=== PATIENT | female | born 1935 | race Caucasian/White ===

== ENCOUNTER 2016-09-29 17:42 | Inpatient (IN) ==
[2016-09-29] MEDS ORDERED: *HR* Morphine 2 MG/ML SYRINGE IVP PRN (20:08)
[2016-09-29] MEDS ORDERED: Acetaminophen 325 MG TABLET PO PRN (20:08)
[2016-09-29] MEDS ORDERED: Nitroglycerin 0.4 MG TAB.SUBL SL PRN (20:08)
[2016-09-29] MEDS ORDERED: *HR* Promethazine 25 MG/ML VIAL IVP PRN (20:08)
[2016-09-29] MEDS ORDERED: Naloxone 0.4 MG/ML INJ IVP PRN (20:08)
[2016-09-29] MEDS ORDERED: Pantoprazole 40 MG VIAL IVP STA (20:08)
[2016-09-29] MEDS ORDERED: *HR* Heparin 5,000 UNIT/ML VIAL IVP PRN ×2 (20:08)
[2016-09-29] MEDS ORDERED: *HR* Heparin 5,000 UNIT/ML VIAL IVP ONE (20:08)
[2016-09-29] MEDS ORDERED: 0.9 % Sodium Chloride 1,000 ML IVC SCH (20:15)
--- NOTE | 2016-09-29 20:36 | Internal Med History&Physical ---
Date of Encounter: 09/29/16 Time of Encounter: 20:00 Assessment and Plan (1) Dizziness, nonspecific Current visit: Yes Status: Acute . (2) Generalized headache Current visit: Yes Status: Acute . (3) Elevated troponin I measurement Current visit: Yes Status: Acute . (4) Non-ST elevation myocardial infarction (NSTEMI) due to mismatch of myocardial oxygen supply and demand Current visit: Yes Status: Acute . (5) Postural vertigo Current visit: Yes Status: Acute . Qualifiers: Laterality: unspecified laterality Qualified Code(s): H81.10 - Benign paroxysmal vertigo, unspecified ear (6) COPD (chronic obstructive pulmonary disease) Current visit: Yes Status: Chronic . Qualifiers: COPD type: chronic bronchitis Chronic bronchitis type: simple Qualified Code(s): J41.0 - Simple chronic bronchitis (7) HTN (hypertension) Current visit: Yes Status: Chronic . Qualifiers: Hypertension type: essential hypertension Qualified Code(s): I10 - Essential (primary) hypertension (8) HLD (hyperlipidemia) Current visit: Yes Status: Chronic . Qualifiers: Hyperlipidemia type: other hyperlipidemia Qualified Code(s): E78.4 - Other hyperlipidemia (9) Obesity (BMI 30-39.9) Current visit: Yes Status: Chronic . (10) Hypothyroidism Current visit: Yes Status: Chronic . Qualifiers: Hypothyroidism type: acquired Qualified Code(s): E03.9 - Hypothyroidism, unspecified (11) Incomplete RBBB Current visit: Yes Status: Chronic . (12) Acute chest wall pain Current visit: Yes Status: Acute . (13) Chest pain, rule out acute myocardial infarction Current visit: Yes Status: Acute . (14) Chest pain with moderate risk of acute coronary syndrome Current visit: Yes Status: Acute . (15) Chronic respiratory failure with hypoxia Current visit: Yes Status: Chronic . (16) CAD (coronary artery disease), [place] coronary artery Current visit: Yes Status: Chronic . Qualifiers: [place] vs. transplanted heart: [place] heart Associated angina: angina presence unspecified Qualified Code(s): I25.10 - Atherosclerotic heart disease of [place] coronary artery without angina pectoris (17) Illiteracy and low-level literacy Current visit: Yes Status: Chronic . (18) Protein-calorie malnutrition, severe Current visit: Yes Status: Chronic . Internal Medicine - H&P: HPI Chief complaint: Chest pain. Dizziness. Admitted From: Hospital to Hospital Transfer (Hospital transfer [facility] ED) Plans for Post Hospital Care: Home History of present illness: Ms. Reed is a 81 year old female admitted to [facility] as a transfer from [facility] ED with the patient presented with complaints of dizziness/the dizziness as being intermittent progressing over at least 2 weeks. Denied any nausea vomiting or diaphoresis associated with these episodes nor did she experience chest pain. Studies in the emergency setting were benign as related to a vital signs, CBC with differential coagulation profile metabolic panel. Urinalysis showed urinary sediment suggesting possible hepatic inflammation and proteinuria. Bone and returned elevated at 0.67 with a BNP of 122. Chronic function profile was benign heat And Measurement 2 Hours Later Was 0.93. EKG Demonstrated No Acute Ischemic Changes. Incomplete Right Bundle Branch Block with a Septal Changes of Age Indeterminate Injury to It. CT of the Head and Portable Chest X-Ray Demonstrated No Acute Abnormalities. The Patient Was Characterized As Presenting with an Atypical Non-STEMI and Transferred for Further Evaluation and Disposition. Interestingly a echocardiogram obtained in August 2015 demonstrated an LVEF of 70%. Moderate diastolic dysfunction was noted. Moderately enlarged right atrial size. Severe pulmonary hypertension with RVSP at 84 mmHg was noted. She carries a diagnosis of prior episode of diastolic CHF exacerbation as well as a prior episode of non-ST elevation OR secondary to demand ischemia type II. Patient's record further acknowledges a family history of coronary artery disease, as well as her own factor presentation with sex, age, hypertension and dyslipidemia. The patient will undergo comprehensive evaluation and disposition. The patient was visited and interviewed and examined. Cumulative laboratory and radiographic data base was considered and discussed. Pertinent ancillary medical records including ECW and PCI documentation was reviewed and considered. Given the patient's presenting concerns, past medical history, clinical findings and symptoms, she is admitted at this time will undergo further evaluation and disposition. Orders were written as per the computerized physician supervisor border department system.......................................................................... .................... Consultative opinions will be sought as clinical circumstances justify. Initial consultative opinion has been requested with cardiology. It is anticipated the patient may undergo left heart catheterization for definition of coronary anatomy and potential intervention pending clinical workup completion. Pain management needs will be addressed. Laboratory+ radiographic data base will be updated as appropriate. Studies include: random urine assays, ddimer,pt/inr, aptt, hypercoag panel, CPK, cardiac injury panel, BNP, viral hep panel, metabolic and hematologic panel, magnesium, phosphorus, ionized calcium, thyroid , lipid profile, A1c, C-peptide , CRP, sedimentation rate, blood gas, lactic acid, UA, serologies, etc. Precautions: Aspiration, fall, delirium protocol/surveillance initiated. Telemetry with continuous hemodynamic monitoring and pulse oximetry initiated. Orthostatic vital signs. Empiric antibiotic coverage: pending diagnostics/culture data. Special studies: CT/CTA chest, MRI brain, echocardiogram, chest x-ray, telemetry , EKG, US retroperitoneum. Pulmonary toilet: Incentive spirometry. PRNaerosol bronchodilator, mucolytic, antitussive. Supplemental oxygen. Corticosteroid therapyPRN. CPAP/BiPAP supplemental oxygen delivery employedPRN. Aerosol Mucomyst therapy may be employedPRN. Fluid and electrolyte repletion efforts will proceed. Careful attention to fluid balance and renal recovery will be emphasized. Avoidance of nephrotoxic exposure and adverse drug drug interaction in the setting of impaired renal function will be monitored closely. Acute coronary syndrome protocol/surveillance initiated. Including: Aspirin statin [place] inhibitor beta cricket. Plavix. Nitrates. PRNmorphine. Intravenous heparin drip ACS protocol. DVT and PUD prophylaxis initiated: PPI therapy, intermittent pneumatic cuffs. Early ambulation will be encouraged. Immunization updates recommended. Influenza and pneumococcal vaccinations as part of ongoing preventative healthcare recommendations strongly recommended. Smoking cessation counseling briefly addressed. Patient is a nonsmoker. Advanced care directive discussion briefly addressed. Patient does not declare any healthcare restrictions at this time. Cardiovascular risk appraisal and cardiovascular risk reduction efforts will be emphasized. Physical +occupational therapy may be asked to evaluate patient's functional capacity and progress mobility if her circumstances justify. Nutrition/dietary education counseling may be considered as circumstances justify. Outpatient medication schedules will be reviewed, confirmed and facilitated as appropriate. Reconciliation of home treatments including adjustments, substitutions and reintroduction into the treatment regimen will address necessary maintenance therapies for chronic pre-existing medical conditions. Plan of care has been reviewed and discussed in detail with the patient. Questions addressed. Hospital course dictated by clinical findings, treatment response and potential consultative interventions. Patient is at risk for further acute clinical decline due to her age, chief complaints and comorbid conditions. Condition is serious. Prognosis is guarded. CODE STATUS is full. Past Med Surg Social Fam HX - Past Medical History Source: old records reviewed Medical history: arthritis, CHF, COPD, coronary artery disease, GERD, hyperlipidemia, hypertension, myocardial infarction, osteoporosis (Vitamin D deficiency), thyroid disease, other Psychiatric history: anxiety, other - Past Surgical History Surgical History: cholecystectomy, other - Social History Smoking Status: Never smoker Smokeless Tobacco Status: No Alcohol use: none Drug use: none Occupational status: retired Current living situation: Home - Independent Activity Level: Independent ambulation, Mostly sedentary Recent Out of Country Travel Within the Last 8 Weeks: No Exposure or Possible Exposure to Illness During Travel: No Internal Medicine - H&P: Meds Bumetanide [Bumex] 1 mg PO DAILY 08/21/15 [History] Cholecalciferol (Vitamin D3) [Vitamin D3] 10,000 unit PO QWEEK 08/21/15 [History ] Clopidogrel [Plavix] 75 mg PO DAILY 08/21/15 [History] Docusate Sodium [Stool Softener] 100 mg PO DAILY 08/21/15 [History] Isosorbide MONOnitrate (24 HR) [Imdur] 30 mg PO DAILY 08/21/15 [History] Levothyroxine Sodium [Tirosint] 25 mcg PO DAILY 08/21/15 [History] Lovastatin [Mevacor] 20 mg PO HS 08/21/15 [History] Potassium Chloride [Klor-Con Sprinkle] 10 meq PO BID 08/21/15 [History] Esomeprazole Magnesium [Nexium] 20 mg PO DAILY 09/29/16 [History] HYDROcodone/Acet 10/325 mg [[place] 10-325 mg] 10 tab PO TID 09/29/16 [History] LORazepam [Ativan] 1 mg PO TID PRN 09/29/16 [History] Donepezil HCl [Aricept] 10 mg PO DAILY 09/30/16 [History] Loratadine [Allergy Relief] 10 mg PO DAILY 09/30/16 [History] Nitroglycerin [Nitrostat] 0.4 mg SL AD PRN 09/30/16 [History] Pnv62/FA/Om3/Dha/Epa/Fish Oil [[employer] Gummy Vitamins] 1 tab PO DAILY 09/30 [History] Triamcinolone Acet 0.1% CRM [Kenalog] 1 appl TP BID 09/30/16 [History] Zinc Oxide [Skin Protectant] 1 appl TP 8XD 09/30/16 [History] Aspirin 81 mg PO DAILY #30 tab.chew 10/02/16 [Rx] Allergies cephalexin [From Keflex] Allergy (Verified 09/10/15 00:55) Rash Penicillins [PCN] Allergy (Verified 09/10/15 00:55) Rash All Systems PM: A 10-system review of systems was performed and is negative for pertinent findings except as documented above in the HPI. - Constitutional Constitutional: as per HPI, no chills, no fever(s), no night sweats - EENT Eyes: as per HPI, no change in vision, no discharge, no pain, no photophobia Ears: as per HPI, no ear discharge, no ear pain, no tinnitus Nose, mouth and throat: as per HPI, no dysphagia, no nasal discharge, no neck pain, no sore throat - Cardiovascular Cardiovascular ROS IM: as per HPI, chest pain, lightheadedness, other, no diaphoresis, no dyspnea, no palpitations, no syncope - Respiratory Respiratory: as per HPI, no cough, no dyspnea, no wheezing, no excessive phlegm production - Gastrointestinal Gastrointestinal: as per HPI, no abdominal pain, no diarrhea, no hematemesis, no hematochezia, no melena, no nausea, no vomiting - Genitourinary Genitourinary: as per HPI, no change in urinary stream, no dysuria, no flank pain, no hematuria Menstruation: as per HPI, post menopausal - Musculoskeletal Musculoskeletal ROS IM: as per HPI, no numbness, no tingling - Integumentary Integumentary IM: as per HPI, no rash, no unusual bruising - Neurological Neurological ROS: as per HPI, no confusion, no convulsions, no focal weakness, no numbness, no tingling, no tremor(s) - Psychiatric Psychiatric: as per HPI - Endocrine Endocrine IM: as per HPI - Hematologic/Lymphatic Hematologic/Lymphatic: as per HPI, no easy bruising - Constitutional Vitals: Temp Pulse Resp BP Pulse Ox 98.2 F 68 18 132/60 98 09/29/16 18:54 09/29/16 18:54 09/29/16 18:54 09/29/16 18:54 09/29/16 18:54 Vital Signs Temp Pulse Resp BP Pulse Ox 09/30/16 04:00 97.9 F 61 18 141/62 99 09/30/16 00:00 98.2 F 66 20 122/74 97 09/29/16 18:54 98.2 F 68 18 132/60 98 Intake and Output 09/29/16 09/29/16 09/30/16 15:59 23:59 07:59 Intake Total 0 / 0 0 / 0 Output Total 175 / 175 Balance 0 / 0 -175 / -175 Intake: Oral 0 / 0 0 / 0 Output: Catheter 175 / 175 Other: # Voids 0 Weight 68.4 kg General appearance: Present: mild distress, A&O X 3, obese, answers questions appropriately - Head Head exam: Present: atraumatic, normocephalic - Eye Eye exam: Present: EOMI, PERRL, conjuntiva pink, sclera anicteric Pupils: Present: normal accommodation, PERRL - ENT ENT exam: Present: mucous membranes moist, normal oropharynx - Neck Neck exam general surgery: Present: full ROM, supple, trachea midline. Absent: lymphadenopathy - Respiratory Respiratory exam: Present: decreased breath sounds, CTAB. Absent: accessory muscle use, rales, rhonchi, wheezes - Cardiovascular Cardiovascular exam: Present: distant heart sounds, RRR, +S1, +S2. Absent: diastolic murmur, gallop, rubs, systolic murmur - GI/Abdominal GI/Abdominal exam: Present: normal bowel sounds, soft, no peritoneal signs. Absent: distended, tenderness - Extremities Exam Extremities exam: Present: full ROM, warm, radial pulses palpable and symetrical. Absent: calf tenderness, cyanotic, pedal edema - Neurological Exam Neurological exam: Present: alert, CN II-XII intact, oriented X3, no focal deficits. Absent: pronater drift, facial droop, speech deficit - Psychiatric Psychiatric exam: Present: normal affect, normal mood - Skin Skin exam: Present: dry, intact, warm Internal Med - H&P Results - Labs CBC & Chem 7: 10/02/16 04:47 10/01/16 03:15 Labs: Short CBC 09/30/16 09/29/16 Range/Units 04:48 21:16 WBC 3.8 L 5.5 (4.3-11.1) K/mcL Hgb 10.6 L 11.1 L (11.5-15.4) g/dL Hct 32.7 L 33.8 L (35.3-44.9) % Plt Count 172 201 (140-400) K/mcL Neutrophils # 2.3 3.6 (1.6-8.9) K/mcL BMP 09/30/16 Range/Units 04:48 Sodium 136 (136-145) mEq/L Potassium 4.6 H D (3.5-4.5) mEq/L Chloride 106 (98-109) mEq/L Carbon Dioxide 22 (19-29) mEq/L BUN 11 (7-20) mg/dL Creatinine 0.81 (0.57-1.11) mg/dL Glucose 85 (70-99) mg/dL Calcium 8.2 L (8.6-10.8) mg/dL Cardiac Enzymes 09/30/16 09/29/16 Range/Units 04:48 21:16 Troponin I 0.55 H* 0.77 H* (0-0.03) ng/mL Liver Function 09/30/16 Range/Units 04:48 Total Bilirubin 0.9 (0.2-1.2) mg/dL AST 34 (5-34) Units/L ALT 10 (0-55) Units/L Alkaline Phosphatase 65 (38-126) Units/L Albumin 2.5 L D (3.5-5.0) g/dL Abnormal lab results WBC 3.8 K/mcL (4.3-11.1) L 09/30/16 04:48 RBC 3.50 M/mcL (3.82-4.97) L 09/30/16 04:48 Hgb 10.6 g/dL (11.5-15.4) L 09/30/16 04:48 Hct 32.7 % (35.3-44.9) L 09/30/16 04:48 MPV 9.1 fL (9.4-12.4) L 09/30/16 04:48 PT 13.4 Seconds (9.4-12.1) H 09/30/16 04:48 APTT 156.7 Seconds (26.0-36.0) H* D 09/30/16 04:48 Heparin Anti-Xa, Unfract 1.33 IU/mL (0.30-0.70) H* 09/30/16 04:48 Potassium 4.6 mEq/L (3.5-4.5) H D 09/30/16 04:48 Calcium 8.2 mg/dL (8.6-10.8) L 09/30/16 04:48 Phosphorus 2.2 mg/dL (2.3-4.7) L 09/29/16 21:16 Troponin I 0.55 ng/mL (0-0.03) H* 09/30/16 04:48 Serum Total Protein 5.3 g/dL (6.0-8.3) L 09/30/16 04:48 Albumin 2.5 g/dL (3.5-5.0) L D 09/30/16 04:48 Albumin/Globulin Ratio 0.9 (1.1-2.2) L 09/30/16 04:48 Laboratory Last Values WBC 3.8 K/mcL (4.3-11.1) L 09/30/16 04:48 RBC 3.50 M/mcL (3.82-4.97) L 09/30/16 04:48 Hgb 10.6 g/dL (11.5-15.4) L 09/30/16 04:48 Hct 32.7 % (35.3-44.9) L 09/30/16 04:48 MCV 93.4 fL (83.0-100.0) 09/30/16 04:48 MCH 30.3 pg (28.0-33.3) 09/30/16 04:48 MCHC 32.4 g/dL (31.6-35.5) 09/30/16 04:48 RDW 12.8 % (11.5-14.5) 09/30/16 04:48 Plt Count 172 K/mcL (140-400) 09/30/16 04:48 MPV 9.1 fL (9.4-12.4) L 09/30/16 04:48 Immature Gran % 0.5 % (0-4) 09/30/16 04:48 Seg Neutrophils % 61.1 % 09/30/16 04:48 Lymphocytes % 27.2 % 09/30/16 04:48 Monocytes % 8.6 % 09/30/16 04:48 Eosinophils % 2.1 % 09/30/16 04:48 Basophils % 0.5 % 09/30/16 04:48 Neutrophils # 2.3 K/mcL (1.6-8.9) 09/30/16 04:48 Lymphocytes # 1.0 K/mcL (0.6-4.6) 09/30/16 04:48 Monocytes # 0.3 K/mcL (0.0-1.3) 09/30/16 04:48 Eosinophils # 0.1 K/mcL (0.0-0.6) 09/30/16 04:48 Basophils # 0.0 K/mcL (0.0-0.2) 09/30/16 04:48 PT 13.4 Seconds (9.4-12.1) H 09/30/16 04:48 INR 1.2 09/30/16 04:48 APTT 156.7 Seconds (26.0-36.0) H* D 09/30/16 04:48 Heparin Anti-Xa, Unfract 1.33 IU/mL (0.30-0.70) H* 09/30/16 04:48 Sodium 136 mEq/L (136-145) 09/30/16 04:48 Potassium 4.6 mEq/L (3.5-4.5) H D 09/30/16 04:48 Chloride 106 mEq/L (98-109) 09/30/16 04:48 Carbon Dioxide 22 mEq/L (19-29) 09/30/16 04:48 BUN 11 mg/dL (7-20) 09/30/16 04:48 Creatinine 0.81 mg/dL (0.57-1.11) 09/30/16 04:48 Est GFR ( Amer) > 60 (> 60) 09/30/16 04:48 Est GFR (Non-Af Amer) > 60 (> 60) 09/30/16 04:48 BUN/Creatinine Ratio 14 (6-26) 09/30/16 04:48 Glucose 85 mg/dL (70-99) 09/30/16 04:48 Est Mean Plasma Glucose 108 mg/dl 09/30/16 04:48 Hemoglobin A1c 5.4 % (-5.6) 09/30/16 04:48 Calculated Osmolality 281 (280-300) 09/30/16 04:48 Calcium 8.2 mg/dL (8.6-10.8) L 09/30/16 04:48 Phosphorus 2.2 mg/dL (2.3-4.7) L 09/29/16 21:16 Magnesium 1.9 mg/dL (1.6-2.6) 09/29/16 21:16 Total Bilirubin 0.9 mg/dL (0.2-1.2) 09/30/16 04:48 AST 34 Units/L (5-34) 09/30/16 04:48 ALT 10 Units/L (0-55) 09/30/16 04:48 Alkaline Phosphatase 65 Units/L (38-126) 09/30/16 04:48 Troponin I 0.55 ng/mL (0-0.03) H* 09/30/16 04:48 Serum Total Protein 5.3 g/dL (6.0-8.3) L 09/30/16 04:48 Albumin 2.5 g/dL (3.5-5.0) L D 09/30/16 04:48 Globulin 2.8 g/dL (2.4-3.5) 09/30/16 04:48 Albumin/Globulin Ratio 0.9 (1.1-2.2) L 09/30/16 04:48 Triglycerides 58 mg/dL (< 150) 09/30/16 04:48 Cholesterol 106 mg/dL (< 200) 09/30/16 04:48 LDL Cholesterol, Calc 45 mg/dL (0-99) 09/30/16 04:48 VLDL Cholesterol, Calc 12 mg/dL (< 31) 09/30/16 04:48 HDL Cholesterol 49 mg/dL (40-59) 09/30/16 04:48 Cholesterol/HDL Ratio 2.2 (0-4.9) 09/30/16 04:48 TSH 0.744 mcIU/mL (0.350-4.840) 09/30/16 04:48 Blood Type A POSITIVE 09/30/16 04:48 Antibody Screen NEGATIVE 09/30/16 04:48 - Impressions Chest CTA 09/29/16 20:41 IMPRESSION: 1. No evidence of pulmonary embolism or acute pulmonary abnormality. 2. Cardiomegaly. D/ / Ti Jane MD / Ti Jane MD Interpreting Provider: Ti Jane MD - Attending Attestation My signature below is to certify that this patient is under my care and that I, or nurse practitioner, or a physician's switchboard operator assistant, or resident pphysician working with me, has had Allergies cephalexin [From Keflex] Allergy (Verified 09/10/15 00:55) Rash Penicillins [PCN] Allergy (Verified 09/10/15 00:55) Rash Home Medications Medication Instructions Recorded Confirmed Type Bumetanide [Bumex] 1 mg PO DAILY 08/21/15 09/29/16 History Cholecalciferol (Vitamin D3) 10,000 unit PO QWEEK 08/21/15 09/29/16 History [Vitamin D3] Clopidogrel [Plavix] 75 mg PO DAILY 08/21/15 09/29/16 History Docusate Sodium [Stool Softener] 100 mg PO DAILY 08/21/15 09/29/16 History Isosorbide MONOnitrate (24 HR) 30 mg PO DAILY 08/21/15 09/29/16 History [Imdur] Levothyroxine Sodium [Tirosint] 25 mcg PO DAILY 08/21/15 09/29/16 History Lovastatin [Mevacor] 20 mg PO HS 08/21/15 09/29/16 History Metoprolol XL (24 HR) Succ [Toprol 25 mg PO DAILY 08/21/15 09/29/16 History Xl] Potassium Chloride [Klor-Con 10 meq PO BID 08/21/15 09/29/16 History Sprinkle] Esomeprazole Magnesium [Nexium] 20 mg PO DAILY 09/29/16 09/29/16 History HYDROcodone/Acet 10/325 mg [[place] 10 tab PO TID 09/29/16 09/29/16 History 10-325 mg] LORazepam [Ativan] 1 mg PO TID PRN 09/29/16 09/29/16 History I & O 03/1609/27/16 09/28/16 09/29/16 23:59 23:59 23:59 23:59 Intake Total 0 / 0 Balance 0 / 0 Weight 68.4 kg Intake: Oral 0 / 0 Other: # Voids 0 Medications Acetaminophen (Tylenol) 650 mg PO Q6HR PRN PRN Reason: Mild Pain (1-3) Stop: 03/31/17 20:09 Acetaminophen/Hydrocodone Bitart ([place] 10-325 Mg) 10 each PO TID AYALA Stop: 03/31/17 21:01 Aspirin (Aspirin) 81 mg PO DAILY AYALA Stop: 04/01/17 09:01 Clopidogrel Bisulfate (Plavix) 75 mg PO DAILY AYALA Stop: 04/01/17 09:01 Clopidogrel Bisulfate (Plavix) 300 mg PO NOW STA Stop: 09/29/16 20:09 Heparin Sodium (Porcine) (Heparin) 4,000 unit IVP Q6HR PRN PRN Reason: SEE COMMENTS Stop: 03/31/17 20:09 Heparin Sodium (Porcine) (Heparin) 4,000 unit IVP ONCE ONE Stop: 09/29/16 20:09 Heparin Sodium (Porcine) (Heparin) 2,000 unit IVP Q6H PRN PRN Reason: SEE COMMENTS Stop: 03/31/17 20:09 Sodium Chloride (0.9 % Sodium Chloride) 1,000 mls @ 50 mls/hr IVC .Q20H AYALA Stop: 03/31/17 20:16 Heparin Sodium/Dextrose (Heparin 25,000 Unit/500 Ml D5w) 25,000 unit in 500 mls @ 16.416 mls/hr IVC .Q24H AYALA; 12 UNIT/KG/HR PRN Reason: Protocol Stop: 03/31/17 20:16 Isosorbide Mononitrate (Imdur) 30 mg PO DAILY [facility] Stop: 04/01/17 09:01 Lorazepam (Ativan) 1 mg PO TID PRN PRN Reason: nerves Stop: 03/31/17 20:03 Lovastatin (Mevacor) 20 mg PO HS [facility] Stop: 03/31/17 21:01 Metoprolol Succinate (Toprol Xl) 25 mg PO DAILY [facility] Stop: 04/01/17 09:01 Morphine Sulfate (Morphine Sulfate) 2 mg IVP Q4HR PRN PRN Reason: Severe Pain (7-10) Stop: 03/31/17 20:09 Naloxone HCl (Narcan) 0.4 mg IVP Q2MIN PRN PRN Reason: Opioid Reversal Stop: 03/31/17 20:09 Nitroglycerin (Nitroglycerin) 0.4 mg SL Q5MIN PRN PRN Reason: Chest Pain Stop: 03/31/17 20:09 Non-Formulary Medication (Docusate Sodium [Stool Softener]) 100 mg PO DAILY AYALA Stop: 04/01/17 09:01 Non-Formulary Medication (Esomeprazole Magnesium [Nexium]) 20 mg PO DAILY [facility]AL[facility] Stop: 04/01/17 09:01 Non-Formulary Medication (Levothyroxine Sodium [Tirosint]) 25 mcg PO DAILY A[facility]ALA Stop: 04/01/17 09:01 Pantoprazole Sodium (Protonix) 40 mg IVP NOW STA Stop: 09/29/16 20:09 Promethazine HCl (Phenergan) 12.5 mg IVP Q6HR PRN PRN Reason: Nausea And Vomiting Stop: 03/31/17 20:09 Rosuvastatin Calcium (Crestor) 20 mg PO HS AYALA Stop: 03/31/17 21:01 Orders 09/29/16 20:02 LORazepam [Ativan] 1 mg PO TID PRN 09/29/16 20:08 Assess for bleeding [RC] protocol Assess neurologic status [RC] Q15MX4,Q1HX2,Q4H Bed rest w/bedside commode [RC] .ONCE Cardiac monitoring [RC] .ONCE Continuous pulse oximetry [RC] .ONCE Comment: Oxygen via nasal cannula Nasal Cannula 2 lpm Comment: Peripheral IV [RC] CONT Placement to Observation Routine Physician Instructions: Reason for Visit: Chest pain. Dizziness. Is VTE Prophylaxis Indicated?: Yes Vital Signs Assessment [RC] Q4H Consult to Cardiac Rehabilitation-Phase1 [CONS] Routine Comment: Reason for Consult: AMI Call Completed: Yes Consult to Nurse Navigator [CONS] Routine Comment: Activated Partial Thrombo Time [COAG] Stat Specimen: Send someone from the department to collect Comment: Magnesium Stat Specimen: Send someone from the department to collect Comment: Phosphorous Stat Specimen: Send someone from the department to collect Comment: Prothrombin Time INR [COAG] Stat Specimen: Send someone from the department to collect Comment: Acetaminophen [Tylenol] 650 mg PO Q6HR PRN Clopidogrel [Plavix] 300 mg PO NOW STA Heparin 2,000 unit IVP Q6H PRN Heparin 4,000 unit IVP ONCE ONE Heparin 4,000 unit IVP Q6HR PRN Morphine [Morphine Sulfate] 2 mg IVP Q4HR PRN Naloxone [Narcan] 0.4 mg IVP Q2MIN PRN Nitroglycerin 0.4 mg SL Q5MIN PRN Pantoprazole [Protonix] 40 mg IVP NOW STA Promethazine [Phenergan] 12.5 mg IVP Q6HR PRN ECG 12 lead ECG [ECG] Stat Mode Of Transportation: Ambulatory Reason For Exam: Myocardial Infarction Exam Performed At:: [facility] EV echocardiogram Routine Mode Of Transportation: Ambulatory Reason For Exam: ACS Exam Performed At:: [facility] 09/29/16 20:09 Bed rest [RC] .CONT Physician Instructions: Bed rest w/bedside commode [RC] .PRN Cardiac Monitoring Med/Surg [RC] .CONT Telemetry Reason: ACS/CP Continuous pulse oximetry [RC] CONT Comment: Measure intake and output [RC] QSHIFT Measure weight [RC] DAILY Oxygen via nasal cannula Nasal Cannula 2 lpm Comment: Titrate O2 to main O2 sat greater than: 92% RT has an order or consult [] NOW 09/29/16 20:14 Communication order [] PRN Comment: Notify provider [] once Physician Instructions: 09/29/16 20:15 Troponin I Q6H Specimen: Send someone from the department to collect Comment: *Low Dose Heparin @ 12 UNIT/KG/HR [Titration] Heparin 25,000 UNIT/500 ML D5W 25, 000 unit in 500 ml IVC 12 unit/kg/hr 0.9 % Sodium Chloride 1,000 ml IVC 50 mls/hr Heparin Low Dose Infusion PROTOCOL Comment: Up with Assist Daily Physician Instructions: Comment: 09/29/16 20:20 12 lead ECG assessment [RC] NOW 09/29/16 21:00 HYDROcodone/Acet 10/325 mg [[place] 10-325 mg] 10 each PO TID Lovastatin [Mevacor] 20 mg PO HS Rosuvastatin [Crestor] 20 mg PO HS 09/29/16 Dinner Cardiac Diet Diet Modifications: 09/30/16 02:15 Troponin I Q6H Specimen: Send someone from the department to collect Comment: 09/30/16 04:00 Activated Partial Thrombo Time [COAG] AM 0400 Specimen: Send someone from the department to collect Comment: Complete Blood Count [HEME] AM 0400 Specimen: Send someone from the department to collect Comment: Comprehensive Metabolic Panel AM 0400 Specimen: Send someone from the department to collect Comment: Hgb A1C AM 0400 Specimen: Send someone from the department to collect Comment: Lipid Panel AM 0400 Specimen: Send someone from the department to collect Comment: Prothrombin Time INR [COAG] AM 0400 Specimen: Send someone from the department to collect Comment: Thyroid Stimulating Hormone AM 0400 Specimen: Send someone from the department to collect Comment: Type and Screen [BBK] AM 0400 Specimen: Send someone from the department to collect Comment: 09/30/16 07:00 ECG 12 lead ECG [ECG] Routine Mode Of Transportation: Ambulatory Reason For Exam: Myocardial Infarction Exam Performed At:: [facility] 09/30/16 08:00 Consult to Cardiology [CONS] Routine Consulting Provider: [facility] [place] Comment: Reason for Consult: Type II NSTEMI in patient w/multiple risk factors. Please eval and advise. Time Notified: 20:19 Call Completed: Yes 09/30/16 08:15 Troponin I Q6H Specimen: Send someone from the department to collect Comment: 09/30/16 09:00 Aspirin 81 mg PO DAILY Clopidogrel [Plavix] 75 mg PO DAILY Docusate Sodium [Stool Softener] 100 mg PO DAILY How will this medication be supplied?: Pharmacy to Subsitute Esomeprazole Magnesium [Nexium] 20 mg PO DAILY How will this medication be supplied?: Pharmacy to Subsitute Isosorbide MONOnitrate (24 HR) [Imdur] 30 mg PO DAILY Levothyroxine Sodium [Tirosint] 25 mcg PO DAILY How will this medication be supplied?: Pharmacy to Subsitute Metoprolol XL (24 HR) Succ [Toprol XL] 25 mg PO DAILY 09/30/16 20:15 Up with Assist Daily Physician Instructions: Comment: 10/01/16 04:00 Activated Partial Thrombo Time [COAG] AM 0400 Specimen: Send someone from the department to collect Comment: Complete Blood Count w/o Diff [HEME] AM 0400 Specimen: Send someone from the department to collect Comment: Prothrombin Time INR [COAG] AM 0400 Specimen: Send someone from the department to collect Comment: 10/01/16 20:15 Up with Assist Daily Physician Instructions: Comment: 10/02/16 04:00 Activated Partial Thrombo Time [COAG] AM 0400 Specimen: Send someone from the department to collect Comment: Complete Blood Count w/o Diff [HEME] AM 0400 Specimen: Send someone from the department to collect Comment: Prothrombin Time INR [COAG] AM 0400 Specimen: Send someone from the department to collect Comment: 10/03/16 04:00 Activated Partial Thrombo Time [COAG] AM 0400 Specimen: Send someone from the department to collect Comment: Complete Blood Count w/o Diff [HEME] AM 0400 Specimen: Send someone from the department to collect Comment: Prothrombin Time INR [COAG] AM 0400 Specimen: Send someone from the department to collect Comment: Patient Problems (Last Updated 09/29/16 @ 20:35 by Nixon Chirinos MD) Acute chest wall pain (Acute) CAD (coronary artery disease), [place]anga coronary artery (Acute) COPD (chronic obstructive pulmonary disease) (Acute) Chest pain with moderate risk of acute coronary syndrome (Acute) Chest pain, rule out acute myocardial infarction (Acute) Dizziness, nonspecific (Acute) Elevated troponin I measurement (Acute) Generalized headache (Acute) HLD (hyperlipidemia) (Acute) HTN (hypertension) (Acute) Hypothyroidism (Acute) Incomplete RBBB (Acute) Non-ST elevation myocardial infarction (NSTEMI) due to mismatch of myocardial oxygen supply and demand (Acute) Obesity (BMI 30-39.9) (Acute) Postural vertigo (Acute) Vital Signs Temp Pulse Resp BP Pulse Ox 09/29/16 18:54 98.2 F 68 18 132/60 98 Assessments/Treatments Fall Precautions Acute Start: 09/29/16 18: 54 Freq: Q12H Status: Active Document 09/29/16 18:54 [facility] (Rec: 09/29/16 18:55 [facility] [id number]) [place] Gaspar Fall Risk Assessment Tool Age greater than or equal to 80 years (3 points) Fall History One fall within the last 6 months before admission (5 points) Elimination, Bowel, and Urine N/A (0 pts) Medications: Includes SHREDDING SPECIALIST/opiates, N/A (0 points) antivulsants, ant-hypertensives, diuretics, hypnotics, Patient Care Equipment: Any equipment None present (0 points) that tethers patient (e.g. IV infusions, chest tube, indwelling Mobility N/A (0 points) Cognition N/A (0 points) Total Fall Risk Score 8 Fall Risk Category Moderate Risk (6-13) Fall Risk Interventions Low Risk Interventions Bed in lowest position Top side rails up x 2 Secure brake on bed Use properly fitting non-skid footwear Call light and frequently needed objects within reach Encourage patients/families to call for assistance when needed Fall education including risk assessment, injury risk and routine/ Inspect environment for safety and communication risk Supervise and assist with toileting/ADLs as needed Moderate Risk Interventions Institue fall-risk tooklit ( yellow flag, yellow non-skid socks and IV-Invasive Line Management Start: 09/29/16 18: 54 Freq: Q4H Status: Active Document 09/29/16 18:54 [facility] (Rec: 09/29/16 18:57 [facility] [id number]) IV/Invasive Line Assessment Right Forearm Date of Insertion 09/29/16 Reason for Line Insertion/Rationale for Provide Access for IV Insertion Medication(s) Gauge (gauge) 20 IV Catheter Type Peripheral IV Site Observation Patent Dressing Applied Window Dressing Line Care P-Locked Left Antecubital Date of Insertion 09/29/16 Reason for Line Insertion/Rationale for Provide Access for IV Insertion Medication(s) Gauge (gauge) 20 IV Catheter Type Peripheral IV Site Observation Patent Dressing Applied Window Dressing Line Care P-Locked Intake and Output, Strict Start: 09/29/16 18: 54 Freq: Q8H Status: Active Document 09/29/16 18:54 [facility] (Rec: 09/29/16 19:06 [facility] [id number]) Intake and Output Intake, Oral Amount 0 Number of Voids 0 Measure weight Start: 09/29/16 18: 54 Freq: Status: Active Document 09/29/16 18:54 [facility] (Rec: 09/29/16 19:06 [facility] [id number]) Height and Weight Height 1.42 m Weight 68.4 kg Weight Measurement Method Built in [facility] Body Mass Index (BMI) 33.74 BMI Classification Obese Obesity Class I Oxygen administration Start: 09/29/16 18: 54 Freq: Q12H Status: Active Document 09/29/16 18:54 [facility] (Rec: 09/29/16 18:58 [facility] [id number]) Oxygen Heart rate 74 Oxygen Delivery Method Room Air FIO2 21 Patient Rounding Start: 09/29/16 18: 54 Freq: Q1H Status: Active Document 09/29/16 18:54 [facility] (Rec: 09/29/16 18:59 [facility] [id number]) Hourly Rounding Hourly Rounding Checked for Patient Positioning Patient Personal Items Placed Within Reach Hourly Rounding Completed Yes Patient Awake Safety Call Light Within Reach Bed Position Low Fall Precautions Phone Within Reach Bed Brake On Side Rails Up X2 Are the Floors Free From Trip Hazards? Yes Is the Room Free From Clutter? Yes Turn and Postion Bedrest No Turn Q 2HR No Document 09/29/16 18:54 [facility] (Rec: 09/29/16 19:06 [facility] [id number]) Hourly Rounding Hourly Rounding Checked for Patient Positioning Patient Personal Items Placed Within Reach Hourly Rounding Completed Yes Patient Awake Is family present? No Safety Call Light Within Reach Bed Position Low Fall Precautions Phone Within Reach Bed Brake On Side Rails Up X2 Are the Floors Free From Trip Hazards? Yes Is the Room Free From Clutter? Yes Document 09/29/16 19:17 [id number] (Rec: 09/29/16 19:17 [id number]) Hourly Rounding Hourly Rounding Checked for Patient Positioning Patient Personal Items Placed Within Reach Checked Patient Pain Level Hourly Rounding Completed Yes Patient Awake Is family present? Yes Safety Call Light Within Reach Bed Position Low Fall Precautions Phone Within Reach Bed Brake On Side Rails Up X2 Are the Floors Free From Trip Hazards? Yes Is the Room Free From Clutter? Yes Turn and Postion Bedrest No Turn Q 2HR No Patient Position Back Vital Signs Assessment Start: 09/29/16 18: 54 Freq: Q4H Status: Active Document 09/29/16 18:54 [facility] (Rec: 09/29/16 19:06 [facility] [id number]) Vital Signs with MEWS Temperature (97.6 F-99.6 F) 98.2 F Temperature Source Oral Pulse Rate 68 Respiratory Rate 18 Pulse Oximetry (95-100) 98 Oxygen Delivery Room Air Blood Pressure 132/60 Blood Pressure Location Right Radial Artery Source Automatic Cuff Position HOB Elevated Discharge Information Observation Discharge Date/Time: Observation Discharge Disposition: Observation Discharge Comment: Instructions: Stand-Alone Forms: Prescriptions: Visit Report - Forms: - Referrals: a hotx-pi-nnge encounter with this patient.
[2016-09-29] MEDS ORDERED: Potassium Chloride Elixir 20 MEQ/15 ML UDC PO ONE (20:50)
[2016-09-29] MEDS ORDERED: *HR* HYDROcodone/Acet 10/325 mg TABLET PO SCH (21:00)
[2016-09-29 21:30] LABS: INR 1.1; Prothrombin Time 12.4 Seconds (9.4-12.1)
[2016-09-29 21:33] LABS: Activated Partial Thrombo Time 29.1 Seconds (26.0-36.0)
[2016-09-29 21:36] LABS: Magnesium 1.9 mg/dL (1.6-2.6); Phosphorous 2.2 mg/dL (2.3-4.7)
[2016-09-29 21:58] LABS: Basophils % 0.6 %; Eosinophils % 0.6 %; Hematocrit 33.8 % (35.3-44.9); Hemoglobin 11.1 g/dL (11.5-15.4); Immature Granulocytes % 0.4 % (0-4); Lymphocytes # 1.3 K/mcL (0.6-4.6); Lymphocytes % 23.1 %; Mean Corpuscular HGB Conc 32.8 g/dL (31.6-35.5); Mean Corpuscular Hemoglobin 30.5 pg (28.0-33.3); Mean Corpuscular Volume 92.9 fL (83.0-100.0); Mean Platelet Volume 9.2 fL (9.4-12.4); Monocytes # 0.5 K/mcL (0.0-1.3); Monocytes % 9.2 %; Neutrophils # 3.6 K/mcL (1.6-8.9); Platelet Count 201 K/mcL (140-400); Red Blood Count 3.64 M/mcL (3.82-4.97); Red Cell Distribution Width 12.7 % (11.5-14.5); Segmented Neutrophils % 66.1 %
[2016-09-29] MEDS: Melatonin 3 MG TABLET PO SCH (22:42)
[2016-09-29] MEDS: Heparin 25,000 UNIT/500 ML D5W 25,000 UNIT/500 ML MLS IVC SCH (23:04)
[2016-09-29] MEDS: *HR* HYDROcodone/Acet 10/325 mg TABLET PO SCH (23:12)
[2016-09-29] MEDS: *HR* LORazepam 1 MG TABLET PO PRN (23:12)
[2016-09-30 05:26] LABS: INR 1.2; Prothrombin Time 13.4 Seconds (9.4-12.1)
[2016-09-30 05:31] LABS: Basophils % 0.5 %; Eosinophils # 0.1 K/mcL (0.0-0.6); Eosinophils % 2.1 %; Hematocrit 32.7 % (35.3-44.9); Hemoglobin 10.6 g/dL (11.5-15.4); Immature Granulocytes % 0.5 % (0-4); Lymphocytes % 27.2 %; Mean Corpuscular HGB Conc 32.4 g/dL (31.6-35.5); Mean Corpuscular Hemoglobin 30.3 pg (28.0-33.3); Mean Corpuscular Volume 93.4 fL (83.0-100.0); Mean Platelet Volume 9.1 fL (9.4-12.4); Monocytes # 0.3 K/mcL (0.0-1.3); Monocytes % 8.6 %; Neutrophils # 2.3 K/mcL (1.6-8.9); Platelet Count 172 K/mcL (140-400); Red Cell Distribution Width 12.8 % (11.5-14.5); Segmented Neutrophils % 61.1 %
[2016-09-30 05:38] LABS: Hemoglobin A1C 5.4 %
[2016-09-30 05:47] LABS: Alanine Aminotransferase 10 Units/L (0-55); Albumin 2.5 g/dL (3.5-5.0); Albumin/Globulin Ratio 0.9 (1.1-2.2); Alkaline Phosphatase 65 Units/L (38-126); Aspartate Amino Transferase 34 Units/L (5-34); BUN/Creatinine Ratio 14 (6-26); Bilirubin,Total 0.9 mg/dL (0.2-1.2); Blood Urea Nitrogen 11 mg/dL (7-20); Calcium 8.2 mg/dL (8.6-10.8); Carbon Dioxide 22 mEq/L (19-29); Chloride 106 mEq/L (98-109); Chol/HDL Ratio 2.2 (0-4.9); Cholesterol 106 mg/dL (< 200); Globulin 2.8 g/dL (2.4-3.5); Glucose 85 mg/dL (70-99); HDL Cholesterol 49 mg/dL (40-59); LDL Cholesterol,Calculated 45 mg/dL (0-99); Osmolality,Calculated 281 (280-300); Potassium 4.6 mEq/L (3.5-4.5); Sodium 136 mEq/L (136-145); Total Protein 5.3 g/dL (6.0-8.3); Triglycerides 58 mg/dL (< 150); eGFR For African Americans > 60 (> 60); eGFR For Non-African Americans > 60 (> 60)
[2016-09-30 05:48] LABS: Activated Partial Thrombo Time 156.7 Seconds (26.0-36.0)
[2016-09-30 06:09] LABS: Thyroid Stimulating Hormone 0.744 mcIU/mL (0.350-4.840)
[2016-09-30 06:16] LABS: Heparin anti-factor XA UFH 1.33 IU/mL (0.30-0.70)
[2016-09-30] MEDS ORDERED: Sodium Phosphate 30 MMOL in D5% in Water 100 ML IVPB ONE (06:25)
[2016-09-30] MEDS ORDERED: Levothyroxine 25 MCG TABLET PO SCH (09:00)
[2016-09-30] MEDS ORDERED: Metoprolol XL (24 HR) Succ 25 MG TAB.ER.24H PO SCH (09:00)
--- NOTE | 2016-09-30 09:02 | Internal Med Progress Note ---
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 (5) Dizziness, nonspecific Current Visit: Yes Status: Acute (6) HLD (hyperlipidemia) Current Visit: Yes Status: Acute Qualifiers: Hyperlipidemia type: other hyperlipidemia Qualified Code(s): E78.4 - Other hyperlipidemia (7) Hypothyroidism Current Visit: Yes Status: Acute Assessment and plan: continue synthroid Qualifiers: Hypothyroidism type: acquired Qualified Code(s): E03.9 - Hypothyroidism, unspecified (8) Incomplete RBBB Current Visit: Yes Status: Acute - Time Spent With Patient Greater than 35 minutes - Subjective Interval history: feels dizzy only when she gets up, confused at times, denies any CP or SOB, no abdominal pain , fever or dysuria - Constitutional Vitals: Temp Pulse Resp BP Pulse Ox 98.7 F 60 16 146/68 98 09/30/16 07:03 09/30/16 07:03 09/30/16 07:03 09/30/16 07:03 09/30/16 07:03 General appearance: Present: mild distress, A&O X 3, obese, answers questions appropriately - Head Head exam: Present: atraumatic, normocephalic - Eye Eye exam: Present: PERRL, conjuntiva pink, sclera anicteric Pupils: Present: PERRL - Neck Neck exam general surgery: Present: supple, trachea midline. Absent: lymphadenopathy - Respiratory Respiratory exam: Present: CTAB. Absent: accessory muscle use, rales, rhonchi, wheezes Additional comments: minimal left fine crackles - Cardiovascular Cardiovascular exam: Present: RRR, +S1, +S2. Absent: diastolic murmur, gallop, rubs, systolic murmur - GI/Abdominal GI/Abdominal exam: Present: normal bowel sounds, soft, no peritoneal signs. Absent: distended, tenderness - Extremities Exam Extremities exam: Present: pedal edema (+ 2 pitting edema in both lower extremities), warm, radial pulses palpable and symetrical. Absent: calf tenderness, cyanotic - Neurological Exam Neurological exam: Present: CN II-XII intact, no focal deficits. Absent: oriented X3 (disoriented in time), pronater drift, facial droop, speech deficit - Skin Skin exam: Present: dry, intact Internal Medicine: Result - Labs CBC & Chem 7: 09/30/16 04:48 09/30/16 04:48 Labs: Short CBC 09/29/16 09/30/16 Range/Units 21:16 04:48 WBC 5.5 3.8 L (4.3-11.1) K/mcL Hgb 11.1 L 10.6 L (11.5-15.4) g/dL Hct 33.8 L 32.7 L (35.3-44.9) % Plt Count 201 172 (140-400) K/mcL Neutrophils # 3.6 2.3 (1.6-8.9) K/mcL BMP 09/30/16 04:48 Sodium 136 Potassium 4.6 H D Chloride 106 Carbon Dioxide 22 BUN 11 Creatinine 0.81 Glucose 85 Calcium 8.2 L Cardiac Enzymes 09/29/16 09/30/16 Range/Units 21:16 04:48 Troponin I 0.77 H* 0.55 H* (0-0.03) ng/mL Liver Function 09/30/16 Range/Units 04:48 Total Bilirubin 0.9 (0.2-1.2) mg/dL AST 34 (5-34) Units/L ALT 10 (0-55) Units/L Alkaline Phosphatase 65 (38-126) Units/L Albumin 2.5 L D (3.5-5.0) g/dL - ABG Interpretation ABG results: PT/INR, D-dimer PT 13.4 Seconds (9.4-12.1) H 09/30/16 04:48 - Impressions Impressions Chest CTA 09/29/16 20:41 IMPRESSION: 1. No evidence of pulmonary embolism or acute pulmonary abnormality. 2. Cardiomegaly. D/ / Ti Jane MD / Ti Jane MD Interpreting Provider: Ti Jane MD Consult Discharge Plan - Plan Referrals: Keya Carolina MD [Primary Care Provider] -
[2016-09-30] MEDS ORDERED: Bumetanide 1 MG TABLET PO SCH (09:15)
[2016-09-30] MEDS: Isosorbide MONOnitrate (24 HR) 30 MG TAB.ER.24H PO SCH (09:31)
[2016-09-30] MEDS: *HR* HYDROcodone/Acet 10/325 mg TABLET PO SCH ×3 (09:32→21:14)
[2016-09-30] MEDS: Aspirin 81 MG TAB.CHEW PO SCH (09:33)
[2016-09-30] MEDS: *HR* LORazepam 1 MG TABLET PO PRN ×2 (09:42→21:22)
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
--- NOTE | 2016-09-30 15:36 | ECHO - Doppler Report ---
Echocardiogram Name: Goldie Reed Date of Study: 09/30/2016 Date: 1935 Ht: 56.0 in Medical Record#: [id number] Age: 81 Wt: 150.0 lb Gender: Female BSA: 1.57 Order #: [id number] Location: [facility] Room #: [id number] Reading Physician: Hoa Arciniega DO Welding Tester: Maria Esther Noe Ordering Physician: Nixon Chirinos MD Primary Physician: Keya Carolina MD Indications: ACS Impressions: LVEF 65%. Normal left ventricular size and systolic function. Mild concentric hypertrophy of the left ventricle. There is evidence of mild diastolic dysfunction of the left ventricle. Normal right ventricular size and function. Mild tricuspid regurgitation. No pulmonary hypertension on this study (based on TR gradient, 27 mmHg). IVC is not well visualized. Left Ventricular Wall Motion: Rest Echo Findings All wall segments showed normal motion. Findings: Study Quality * Technically adequate exam. ECG Findings * Normal sinus rhythm. Left Ventricle * Mild concentric left ventricular hypertrophy. * LVEF 65%. * Mild left ventricular diastolic dysfunction. Left Atrium * Normal left atrial size. Mitral Valve * Mild mitral annular calcification * Trivial mitral regurgitation. * No mitral stenosis. * Possibly mild prolapsing of the AMVLV (seen best in Apical views). Aortic Valve * No aortic regurgitation. * Trileaflet aortic valve. * Mildly calcified aortic valve leaflets. * No aortic stenosis. Tricuspid Valve * Normal tricuspid valve structure. * Mild tricuspid regurgitation. Pulmonic Valve * Pulmonic valve is not well visualized. * No pulmonic stenosis. * No pulmonic regurgitation. Pulmonary Artery * Pulmonary artery not well visualized. Right Ventricle * Normal right ventricular structure and function. Right Atrium * Normal right atrial size. Interatrial Septum * Interatrial septum not well evaluated. IVC * The IVC is not well evaluated. Pericardium * There is no pericardial effusion present. Aorta * Normally sized aortic root. History Hypertension Hypercholesteremia 09/10/15 a Previous Echo was performed. Measurements: BP: 146/ 68 2D Normal Values IVSd: 1.40 cm 0.6 - 1.0 cm LVIDd: 2.70 cm 3.7 - 5.6 cm LVPWd: 1.40 cm 0.6 - 1.1 cm LVIDs: 1.90 cm 1.5 - 3.6 cm AO: 2.30 cm < 4.0 cm LA: 2.90 cm 2.0 - 4.0cm %FS: 29.60 cm >25 % LA volume: 26 Mitral Valve Peak E:.58 m/sec Peak A:.66 m/sec E/A Ratio:0.9 Peak E' Lat Miles:9.26 cm/s Peak E' Med Miles:4.48 cm/s E/E' Lat Ratio:6.2 E/E' Med Ratio:12.9 Tricuspid Valve TV Regurg Peak Grad: 27.00mmHg TV Regurg Peak Miles: 2.61m/sec Updated by Hoa Arciniega on 09/30/2016 3:28:44 PM electronically signed on 09/30/2016 3:31:36 PM with status of Final Wall Motion Pruett: 1=Normal, 2=Hypokinesis, 3=Akinesis, 4=Dyskinesis, 5=Aneurysmal, 6=Hyperkinetic, X=Not Visualized (Blank)=Missing
[2016-09-30] MEDS: Melatonin 3 MG TABLET PO SCH (21:14)
[2016-10-01 01:31] LABS: Bilirubin,Urine Moderate (Negative); Blood,Urine Negative (Negative); Clarity,Urine Clear (Clear); Color,Urine Dark Yellow (Yellow); Glucose,Urine (UA) Normal (Normal); Ketones,Urine Negative (Negative); Leukocyte Esterase,Urine Trace (Negative); Nitrite,Urine Negative (Negative); PH,Urine 5.5 pH Units (5.0-8.0); Protein,Urine Trace mg/dL (Neg-Trace); Specific Gravity,Urine > 1.030 (1.010-1.025); Urobilinogen,Urine Normal (Normal)
[2016-10-01 01:34] LABS: Bacteria,Urine None Seen per hpf (None-Few); Hyaline Casts,Urine None Seen per lpf (None-Few); Squamous Epithelial Cell,Urine Many per lpf (None-Few)
[2016-10-01 03:24] LABS: Hematocrit 31.4 % (35.3-44.9); Hemoglobin 10.5 g/dL (11.5-15.4); Mean Corpuscular HGB Conc 33.4 g/dL (31.6-35.5); Mean Corpuscular Hemoglobin 31.2 pg (28.0-33.3); Mean Corpuscular Volume 93.2 fL (83.0-100.0); Mean Platelet Volume 9.1 fL (9.4-12.4); Platelet Count 181 K/mcL (140-400); Red Blood Count 3.37 M/mcL (3.82-4.97)
[2016-10-01 03:28] LABS: INR 1.1; Prothrombin Time 12.3 Seconds (9.4-12.1)
[2016-10-01 03:31] LABS: Activated Partial Thrombo Time 54.2 Seconds (26.0-36.0)
[2016-10-01 03:39] LABS: BUN/Creatinine Ratio 13 (6-26); Blood Urea Nitrogen 10 mg/dL (7-20); Calcium 8.1 mg/dL (8.6-10.8); Carbon Dioxide 23 mEq/L (19-29); Chloride 104 mEq/L (98-109); Glucose 101 mg/dL (70-99); Osmolality,Calculated 277 (280-300); Potassium 3.9 mEq/L (3.5-4.5); Sodium 134 mEq/L (136-145); eGFR For African Americans > 60 (> 60); eGFR For Non-African Americans > 60 (> 60)
[2016-10-01] MEDS ORDERED: Regadenoson 0.4 MG/5 ML SYRINGE IVP ONE (06:20)
[2016-10-01] MEDS: Levothyroxine 25 MCG TABLET PO SCH (06:50)
--- NOTE | 2016-10-01 09:55 | Cardiology Progress Note ---
Date of Encounter: 10/01/16 Time of Encounter: 09:30 Assessment and Plan (1) Elevated troponin Current Visit: Yes Status: Acute 10/01/16 ECHO performed 09/30/16 demonstrated LVEF 65%, mild concentric LVH, mild diastolic dysfunction of LV, normal RV, mild tricuspid regurg, no pulmonary HTN Troponin continues to trend down 0.67, 0.93, 0.77, 0.55, 0.37 24 hour telemetry: avg HR 65, min HR 47, max HR 85, no evidence of heart block or sinus pause Will continue to hold BB due to evidence of bradycardia Nuclear stress today is pending Continue to monitor telemetry 09/30/16 Troponin trend 0.67, 0.93, 0.77, 0.55, trending down EKG NSR, previous EKG 09/10/15 NSR CTA with cardiomegaly, no evidenco of PE or acute pulmonary abnormality ECHO 09/10/15 LVEF 70%, moderate diastolic dysfunction LV, no significant valvular dysfunction, severe pulmonary hypertension, RVSP 88mmHg Review of 24 hour telemetry revealed avg HR 58, max HR 86, min HR 33, longest pause 2.4 seconds Nonspecific troponin elevation given normal EKG, telemetry, absence of chest pain (2) Dizziness, nonspecific Current Visit: Yes Status: Acute Suspect that Dizziness may be due to BB-induced bradycardia Hold metoprolol Continue to monitor telemetry (3) HTN (hypertension) Current Visit: Yes Status: Acute Will hold BB Continue to monitor Qualifiers: Hypertension type: essential hypertension Qualified Code(s): I10 - Essential (primary) hypertension (4) HLD (hyperlipidemia) Current Visit: Yes Status: Acute Continue home medication Qualifiers: Hyperlipidemia type: other hyperlipidemia Qualified Code(s): E78.4 - Other hyperlipidemia Discussion w patient/family: The assessment and plan as outlined above was discussed with the patient and/or family members who expressed understanding and agreement. All questions were answered. Thank you for involving us in the care of your patient. Please call with any questions. Subjective Principal diagnosis: NSTEMI, dizziness Interval history: Patient seen and examined in resting phase of nuclear stress test. Patient states that she had dizziness this morning as she did the morning of her fall. Denies chest pain, racing heart, dyspnea. Objective General: Conversant, No Apparent Distress HEENT: Atraumatic, Normocephaly, Mucus Membranes Moist, Other Neck: No JVD, Normal carotid pulses Cardiac: Reg Rate and Rhythm, Normal S1 and S2, No Murmur Lungs: Normal Breath Sounds, No Wheeze, Rales, Rhonchi Neuro: Alert and responsive, No focal deficits noted Abdomen: Soft, Non-Tender Skin: No rashes noted on visualized skin Musculoskeletal: No Chest Wall Tenderness Extremities: No Clubbing, No Cyanosis, No Edema, Normal Pulses Results 10/01/16 03:15 10/01/16 03:15 Lab Results 09/30/16 09/30/16 10/01/16 14:23 14:23 03:15 WBC 4.2 L Hgb 10.5 L Hct 31.4 L Plt Count 181 INR APTT 64.8 H D Sodium Potassium Chloride Carbon Dioxide BUN Creatinine Glucose Calcium Troponin I 0.37 H* 10/01/16 10/01/16 03:15 03:15 WBC Hgb Hct Plt Count INR 1.1 APTT 54.2 H Sodium 134 L Potassium 3.9 Chloride 104 Carbon Dioxide 23 BUN 10 Creatinine 0.78 Glucose 101 H Calcium 8.1 L Troponin I - EKG Interpretation EKG results cardiology: personally reviewed, normal ECG, sinus rhythm Consult Discharge Plan - Plan Referrals: Keya Carolina MD [Primary Care Provider] -
--- NOTE | 2016-10-01 11:59 | Venous Imaging Report ---
LE Venous Duplex Patient Name:Goldie Reed Order Number:[id number] Procedure Date:09/30/2016 Date:6Age:81 yrs Gender:Female Location:[facility] Room #: [id number] Client Technical Professional:Maria Esther Noe Referring MD:Nixon Chirinos MD latin american studies director:Keya Carolina MD Reading MD:Jesse Hernandez MD Secondary Indications: Risk Factors Yes/No Hx of DVT No Anticoagulants No Impressions: Normal bilateral lower extremity deep and superficial venous exam. Recommendations: After imaging the patient returned to their room. Findings Venous Duplex Results: Right: Venous imaging of the lower extremity reveals full patency and normal vessel compressibility of the right distal iliac, right common femoral, right superficial femoral, right popliteal, right posterior tibial, right peroneal, right great saphenous and right lesser saphenous. Doppler signals in the evaluated veins were normal. The right lesser saphenous vein was not assessed. Left: Venous imaging of the lower extremity reveals full patency and normal vessel compressibility of the left distal iliac, left common femoral, left superficial femoral, left popliteal, left posterior tibial, left peroneal, left great saphenous and left lesser saphenous. Doppler signals in the evaluated veins were normal. Lower Extremity Venous Duplex Side Vein Compress Spontaneous Flow Augment Diameter (cm) Depth (cm) Right Distal Iliac Normal Yes Phasic Yes Right Common Femoral Normal Yes Phasic Yes Right Superficial Femoral Normal Yes Phasic Yes Right Popliteal Normal Yes Phasic Yes Right Posterior Tibial Normal Yes Phasic Yes Right Peroneal Normal Yes Phasic Yes Right Great Saphenous Normal Yes Phasic Yes Right Lesser Saphenous Normal Yes Phasic Yes Left Distal Iliac Normal Yes Phasic Yes Left Common Femoral Normal Yes Phasic Yes Left Superficial Femoral Normal Yes Phasic Yes Left Popliteal Normal Yes Phasic Yes Left Posterior Tibial Normal Yes Phasic Yes Left Peroneal Normal Yes Phasic Yes Left Great Saphenous Normal Yes Phasic Yes Left Lesser Saphenous Normal Yes Phasic Yes Updated by Jesse Hernandez MD on 10/01/2016 11:53:00 AM electronically signed on 10/01/2016 11:53:51 AM with status of Final
[2016-10-01] MEDS: *HR* HYDROcodone/Acet 10/325 mg TABLET PO SCH ×3 (13:01→21:50)
[2016-10-01] MEDS: Heparin 25,000 UNIT/500 ML D5W 25,000 UNIT/500 ML MLS IVC SCH (13:02)
--- NOTE | 2016-10-01 13:24 | Nuclear Medicine Stress Report ---
Regadenoson Nuclear Stress Name: Goldie Reed Date of Study: 10/01/2016 Date: 1935 Ht: 55.0 in Medical Record#: [id number] Age: 81 Wt: 149.0 lb Gender: Female Order #: [id number] Location: [facility] Room: [facility] Supervising Provider: Pilo Mancia CNP Reading Physician: Hoa Arciniega DO Ordering Physician: Maryana Green CNP Primary Care Physician: Keya Carolina MD Stress Technologist: Estrellita Silva RRT,[facility] [employer] Tool Driller: Magali Luna Indications: Chest Pain Impression: Perfusion imaging was negative for ischemia or infarct. Pharmacologic ECG was negative for ischemia at the level of heart rate achieved. Gated EF = >70%. History: Hypertension Hypercholesteremia Stress Test Summary: Stress Test Type: Pharmacologic Regadenoson 0.4mg/5ml given IV Baseline Information: Initial Heart Rate: 79 Blood Pressure: 132/70 Stress Information: Test Terminated Due to (primary): As per protocol Maximum Blood Pressure: 136/58 Maximum Heart Rate: 115 Percent Maximum Heart Rate Achieved: 83 Double Product: [id number] METS Reached: 1 Symptoms: No symptoms Nuclear Summary: SPECT myocardial perfusion imaging using Tc99m Sestamibi given intravenously was performed at rest and following cardiac stress testing. The resting images were obtained following initial dose of 11.5 mCi. Following stress an additional dose of 27.3 mCi was given at peak exercise or 30 seconds post regadenoson infusion. Medication Given: Time Medication Dose Units Route Findings: Stress Note * Resting ECG demonstrated normal sinus rhythm. * Pharmacologic stress ECG is negative for ischemia at level of heart rate achieved. * No arrhythmias were noted during stress. * Patient had no chest pain during stress. Hemodynamic responses * Normal hemodynamic responses to pharmacologic stress. Study Quality * Study quality was fair. Gated EF > 70% * Gated EF > 70%. Left Ventricle * The left ventricle is not dilated. TID * No evidence of transient ischemic dilatation. Lung Uptake * There is no evidence of increase lung uptake. NORMALS * Normal wall motion. * Normal segmental perfusion in stress. * Normal Segmental Perfusion in rest. Updated by Hoa Arciniega on 10/01/2016 1:17:41 PM electronically signed on 10/01/2016 1:18:37 PM with status of Final
[2016-10-01] MEDS: Aspirin 81 MG TAB.CHEW PO SCH (17:36)
[2016-10-01] MEDS: *HR* LORazepam 1 MG TABLET PO PRN (17:37)
[2016-10-01] MEDS: Isosorbide MONOnitrate (24 HR) 30 MG TAB.ER.24H PO SCH (17:37)
--- NOTE | 2016-10-01 21:06 | Internal Med Progress Note ---
Date of Encounter: 10/01/16 Time of Encounter: 13:00 - Assessment and plan (1) Non-STEMI (non-ST elevated myocardial infarction) Current Visit: No Status: Acute Assessment and plan: Appreciate cardiology input. Stress test was negative. Discontinue heparin. Recalled from previous date of service: NSTEMI trop 0.93 trending down continue heparin drip, ASA Statin, nitro prn, metoprolol cardiology consulted (2) CAD (coronary artery disease), [place] coronary artery Current Visit: Yes Status: Chronic Assessment and plan: Continue with aspirin and Plavix beta cricket and statin. Qualifiers: [place] vs. transplanted heart: [place] heart Associated angina: angina presence unspecified Qualified Code(s): I25.10 - Atherosclerotic heart disease of [place] coronary artery without angina pectoris (3) HTN (hypertension) Current Visit: Yes Status: Acute Assessment and plan: Stop Toprol-XL due to hypotension. This was discussed with cardiology today.. Qualifiers: Hypertension type: essential hypertension Qualified Code(s): I10 - Essential (primary) hypertension (4) Obesity (BMI 30-39.9) Current Visit: Yes Status: Acute Assessment and plan: Outpatient follow-up. - Subjective Interval history: History is limited by mild confusion. She had a stress test today which she tolerated well. Denies chest pain and shortness of breath. - Constitutional Vitals: Temp Pulse Resp BP Pulse Ox 98.4 F 71 14 107/58 96 10/01/16 20:58 10/01/16 20:58 10/01/16 20:58 10/01/16 20:58 10/01/16 20:58 General appearance: Present: mild distress, A&O X 3, obese, answers questions appropriately - Eye Eye exam: Present: PERRL, conjuntiva pink, sclera anicteric Pupils: Present: PERRL - Respiratory Respiratory exam: Present: CTAB. Absent: accessory muscle use, rales, rhonchi, wheezes - Cardiovascular Cardiovascular exam: Present: RRR, +S1, +S2. Absent: diastolic murmur, gallop, rubs, systolic murmur - GI/Abdominal GI/Abdominal exam: Present: normal bowel sounds, soft, no peritoneal signs. Absent: distended, tenderness - Skin Skin exam: Present: dry, intact Internal Medicine: Result - Labs CBC & Chem 7: 10/01/16 03:15 03/21/17 03:15 Labs: Short CBC 10/01/16 Range/Units 03:15 WBC 4.2 L (4.3-11.1) K/mcL Hgb 10.5 L (11.5-15.4) g/dL Hct 31.4 L (35.3-44.9) % Plt Count 181 (140-400) K/mcL BMP 10/01/16 03:15 Sodium 134 L Potassium 3.9 Chloride 104 Carbon Dioxide 23 BUN 10 Creatinine 0.78 Glucose 101 H Calcium 8.1 L Urine 10/01/16 Range/Units 01:10 Urine Color Dark Yellow (Yellow) Urine Clarity Clear (Clear) Urine pH 5.5 (5.0-8.0) pH Units Ur Specific Aristes > 1.030 H (1.010-1.025) Urine Protein Trace (Neg-Trace) mg/dL Urine Glucose (UA) Normal (Normal) mg/dL - ABG Interpretation ABG results: PT/INR, D-dimer PT 12.3 Seconds (9.4-12.1) H 10/01/16 03:15 Consult Discharge Plan - Plan Referrals: Keya Carolina MD [Primary Care Provider] -
[2016-10-01] MEDS: Melatonin 3 MG TABLET PO SCH (21:51)
[2016-10-02 05:16] LABS: Hematocrit 31.4 % (35.3-44.9); Hemoglobin 10.4 g/dL (11.5-15.4); Mean Corpuscular HGB Conc 33.1 g/dL (31.6-35.5); Mean Corpuscular Volume 93.7 fL (83.0-100.0); Mean Platelet Volume 9.5 fL (9.4-12.4); Platelet Count 201 K/mcL (140-400); Red Blood Count 3.35 M/mcL (3.82-4.97); Red Cell Distribution Width 12.8 % (11.5-14.5)
[2016-10-02 05:45] LABS: INR 1.1; Prothrombin Time 12.1 Seconds (9.4-12.1)
[2016-10-02] MEDS: Levothyroxine 25 MCG TABLET PO SCH (06:21)
[2016-10-02] MEDS ORDERED: Bumetanide 1 MG TABLET PO SCH (09:00)
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
[2016-10-02] MEDS: *HR* HYDROcodone/Acet 10/325 mg TABLET PO SCH ×2 (10:53→17:52)
[2016-10-02] MEDS: *HR* LORazepam 1 MG TABLET PO PRN ×2 (10:53→17:52)
[2016-10-02] MEDS: Aspirin 81 MG TAB.CHEW PO SCH (10:53)
[2016-10-02] MEDS: Isosorbide MONOnitrate (24 HR) 30 MG TAB.ER.24H PO SCH (10:53)
[2016-10-02] MEDS ORDERED: 0.9 % Sodium Chloride 250 ML IVC ONE (13:38)
[2016-10-02 15:12] LABS: Bilirubin,Urine Moderate (Negative); Blood,Urine Large (Negative); Clarity,Urine Cloudy (Clear); Color,Urine Orange (Yellow); Glucose,Urine (UA) Normal (Normal); Ketones,Urine Trace mg/dL (Negative); Leukocyte Esterase,Urine Small (Negative); Nitrite,Urine Negative (Negative); Protein,Urine 30 mg/dL (Neg-Trace); Specific Gravity,Urine > 1.030 (1.010-1.025); Urobilinogen,Urine Normal (Normal)
[2016-10-02 15:14] LABS: Bacteria,Urine Many per hpf (None-Few); Hyaline Casts,Urine Few per lpf (None-Few); RBC,Urine 30-50 per hpf (0-3); Squamous Epithelial Cell,Urine Moderate per lpf (None-Few); WBC,Urine 30-50 per hpf (0-3)
[2016-10-02] MEDS ORDERED: Levofloxacin 750 MG/150 ML 750 MG/150 ML BAG IVPB ONE (17:27)
--- NOTE | 2016-10-02 19:32 | Physician Discharge Referral ---
ExtendedCare Referral Info Transfer To: ECF Provider in Charge after Transfer: PCP Institutional Level of Care: Skilled - Diagnosis (1) Non-STEMI (non-ST elevated myocardial infarction) Status: Acute (2) CAD (coronary artery disease), [place] coronary artery Status: Chronic (3) HTN (hypertension) Status: Chronic (4) Obesity (BMI 30-39.9) Status: Chronic (5) Incomplete RBBB Status: Chronic (6) Acute chest wall pain Status: Acute (7) Leg edema Status: Acute - Transfer Medications Prescriptions: Aspirin 81 mg PO DAILY #30 tab.chew HYDROcodone/Acet 10/325 mg [[place] 10-325 mg] 1 tab PO TID #90 tab Levofloxacin [Levaquin] 750 mg PO DAILY #6 tablet LORazepam [Ativan] 1 mg PO TID PRN #30 tablet PRN Reason: Anxiety Home Medications: Bumetanide [Bumex] 1 mg PO DAILY 08/21/15 [History] Cholecalciferol (Vitamin D3) [Vitamin D3] 10,000 unit PO QWEEK 08/21/15 [History ] Clopidogrel [Plavix] 75 mg PO DAILY 08/21/15 [History] Docusate Sodium [Stool Softener] 100 mg PO DAILY 08/21/15 [History] Isosorbide MONOnitrate (24 HR) [Imdur] 30 mg PO DAILY 08/21/15 [History] Levothyroxine Sodium [Tirosint] 25 mcg PO DAILY 08/21/15 [History] Lovastatin [Mevacor] 20 mg PO HS 08/21/15 [History] Potassium Chloride [Klor-Con Sprinkle] 10 meq PO BID 08/21/15 [History] Esomeprazole Magnesium [Nexium] 20 mg PO DAILY 09/29/16 [History] HYDROcodone/Acet 10/325 mg [[place] 10-325 mg] 10 tab PO TID 09/29/16 [History] LORazepam [Ativan] 1 mg PO TID PRN 09/29/16 [History] Donepezil HCl [Aricept] 10 mg PO DAILY 09/30/16 [History] Loratadine [Allergy Relief] 10 mg PO DAILY 09/30/16 [History] Nitroglycerin [Nitrostat] 0.4 mg SL AD PRN 09/30/16 [History] Pnv62/FA/Om3/Dha/Epa/Fish Oil [[employer] Gummy Vitamins] 1 tab PO DAILY 09/30 [History] Triamcinolone Acet 0.1% CRM [Kenalog] 1 appl TP BID 09/30/16 [History] Zinc Oxide [Skin Protectant] 1 appl TP 8XD 09/30/16 [History] Aspirin 81 mg PO DAILY #30 tab.chew 10/02/16 [Rx] HYDROcodone/Acet 10/325 mg [[place] 10-325 mg] 1 tab PO TID #90 tab 10/02/16 [Rx] LORazepam [Ativan] 1 mg PO TID PRN #30 tablet 10/02/16 [Rx] Levofloxacin [Levaquin] 750 mg PO DAILY #6 tablet 10/02/16 [Rx] Allergies/Adverse Reactions: Allergies cephalexin [From Keflex] Allergy (Verified 09/10/15 00:55) Rash Penicillins [PCN] Allergy (Verified 09/10/15 00:55) Rash - Respiratory Orders Oxygen / L per min Smoking Cessation: Smoking cessation has been advised. For more information, call the [place] Tobacco Quit Line at 9-608-UYYM-NOW. - Ancillary Orders May use pressure relief devices daily prn - Advance Directives Living Will: No Power of Carpet Loom Fixer: Yes Code Status: Full Code - Rehabiliation Orders Rehab Potential: Good Rehab Orders: Evaluation for Physical Therapy, Evaluation for Occupational Therapy - Treatments Skin tear care topically daily PRN per policy - Diet Orders No Concentrated Sweets, Cardiac CERTIFICATION: I certify that the transfer of the above named patient to an Extended Care Facility is necessary for the continuing treatment of the diagnosis listed. The above information is true and accurate reflection of patient's current condition. Confidential - Redisclosure prohibited without a patient's written consent.
[2016-10-02 21:00] VITALS: BP 127/92
== END 2016-10-02 21:00 | DRG 280 ==
LOC: 2NENU → SUATTDRO 09-30 16:55
PROVIDERS: ADMIT Internal Medicine; ATTEND Internal Medicine

== ENCOUNTER 2022-02-26 18:40 | Observation (INO) ==
[2022-02-27] MEDS ORDERED: MOM Conc 10 ML UD.LIQ PO PRN (00:01)
[2022-02-27] MEDS ORDERED: Acetaminophen 325 MG TABLET PO PRN (00:01)
[2022-02-27] MEDS ORDERED: Naloxone 0.4 MG/ML INJ IVP PRN (00:01)
[2022-02-27] MEDS ORDERED: Melatonin 3 MG TABLET PO PRN (00:01)
[2022-02-27] MEDS ORDERED: *HR* LORazepam 2 MG/ML VIAL IVP PRN (01:27)
[2022-02-27] MEDS ORDERED: Ondansetron 4 MG/2 ML VIAL IVP PRN (01:27)
[2022-02-27] MEDS ORDERED: Haloperidol Lactate 5 MG/ML VIAL IVP PRN (01:27)
[2022-02-27] MEDS ORDERED: Morphine Sulfate 2 MG/ML SYRINGE IVP PRN (01:27)
[2022-02-27] MEDS ORDERED: Scopolamine Patch 1.5 MG PATCH.TD72 TD SCH ×2 (01:30→09:00)
[2022-02-27] MEDS ORDERED: *HR* FentaNYL PATCH 12 MCG PATCH TD SCH (09:00)
[2022-02-27 19:58] VITALS: TEMP 98
[2022-02-27] MEDS: Saliva Stimulant 44.3ml BOTTLE PO SCH ×2 (19:58→20:01)
[2022-02-28 06:53] VITALS: BP 137/86; PULSE 92; O2SAT 97
[2022-02-28] MEDS: Saliva Stimulant 44.3ml BOTTLE PO SCH (10:22)
[2022-02-28 12:30] LABS: Influenza A PCR Negative (Negative); Influenza B PCR Negative (Negative); Resp. Syncytial Virus PCR Negative (Negative)
[2022-02-28 13:08] LABS: SARS-CoV-2 by PCR (In House) Negative (Negative)
== END 2022-02-28 15:03 | disposition hospice, inpatient (51) ==
LOC: 2NNU → SUATTDRO 23:12 → 2ANU 02-27 19:13
PROVIDERS: ADMIT Internal Medicine; ATTEND Internal Medicine